=== PATIENT | male | born 1980 | race African-American/Black ===

== ENCOUNTER 2017-05-13 10:23 | Emergency (ER) | payer OTHER ==
[~2017-05-13] VITALS: Ht 188 cm; Wt 81.6 kg
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
== END 2017-05-13 13:24 | disposition home or self-care (01) ==
LOC: CED 10:23
DX: S70.02XA Contusion of left hip, initial encounter (principal); V44.5XXA Car driver injured in collision with heavy transport vehicle or bus in traffic accident, initial encounter; Y93.89 Activity, other specified; Y92.410 Unspecified street and highway as the place of occurrence of the external cause
CPT/HCPCS: 73502; 99284